=== PATIENT | male | born 1990 | race Caucasian/White ===

== ENCOUNTER 2020-04-24 12:47 | Emergency (ER) | payer OTHER ==
[2020-04-24] MEDS ORDERED: ACETAMINOPHEN 500 MG TAB ONE (13:43)
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
[2020-04-27 17:57] VITALS: O2SAT 99
[2020-04-27 18:02] VITALS: BP 134/99; TEMP 98.1
== END 2020-04-24 15:16 | disposition home or self-care (01) ==
LOC: ER 12:47
DX: M62.838 Other muscle spasm (principal); V49.40XA Driver injured in collision with unspecified motor vehicles in traffic accident, initial encounter
CPT/HCPCS: 72125; 71260; 99285; Q9967; G0390